=== PATIENT | male | born 1950 | race Caucasian/White ===

== ENCOUNTER 2017-12-07 16:32 | Inpatient (IN) ==
[2017-12-07 17:49] LABS: Basophils % 0.4 % (0.0-0.8); Hematocrit 42.1 VOL% (42.0-52.0); Hemoglobin 14.5 GM/DL (14.0-18.0); Immature Granulocytes % 0.4 %; Immature Granulocytes Absolute 0.01 #; Lymphocytes # 0.3 10*3/uL (1.4-4.0); Lymphocytes % 9.8 % (21.2-54.2); Mean Corpuscular HGB Conc 34.4 GM/DL (32-36); Mean Corpuscular Hemoglobin 34 PG (27-34); Mean Corpuscular Volume 98.4 FL (87-102); Mean Platelet Volume 10.5 FL (9.6-12.0); Monocytes # 0.4 10*3/uL (0.11-0.8); Monocytes % 14.8 % (1.7-12.7); Neutrophils % 74.6 % (38.7-73.9); Platelet Count 64 T/CUMM (130-400); Red Blood Count 4.28 MC/CUMM (3.8-5.5); Red Cell Distribution Width 14.6 % (9.3-17.3); White Blood Count 2.6 T/CUMM (4-12)
[2017-12-07 18:10] LABS: Albumin 2.8 G/DL (3.4-5.0); Bilirubin,Total 0.8 MG/DL (0.2-1.0); Calcium 8.3 MG/DL (8.5-10.1); Osmolality,Calculated 280.5 MOS/KG (273-304); Potassium 3.4 MMOL/L (3.5-5.1); Total Protein 7.8 G/DL (6.4-8.3)
[2017-12-07 20:03] LABS: Platelet Estimate Decreased
[2017-12-07 23:40] LABS: Lactic Acid 1.1 MMOL/L (0.4-2.0)
[2017-12-08 03:47] LABS: Basophils % 0.4 % (0.0-0.8); Eosinophils % 0.4 % (0.00-10.9); Hematocrit 40.6 VOL% (42.0-52.0); Hemoglobin 13.9 GM/DL (14.0-18.0); Immature Granulocytes % 0.4 %; Immature Granulocytes Absolute 0.01 #; Lymphocytes # 0.3 10*3/uL (1.4-4.0); Lymphocytes % 13.1 % (21.2-54.2); Mean Corpuscular HGB Conc 34.2 GM/DL (32-36); Mean Corpuscular Hemoglobin 34 PG (27-34); Mean Corpuscular Volume 97.8 FL (87-102); Mean Platelet Volume 10.7 FL (9.6-12.0); Monocytes # 0.4 10*3/uL (0.11-0.8); Monocytes % 17.1 % (1.7-12.7); NRBC # 0.02 10*3/uL; Neutrophils # 1.7 10*3/uL (1.4-7.4); Neutrophils % 68.6 % (38.7-73.9); Platelet Count 62 T/CUMM (130-400); Red Blood Count 4.15 MC/CUMM (3.8-5.5); Red Cell Distribution Width 14.8 % (9.3-17.3); White Blood Count 2.5 T/CUMM (4-12)
[2017-12-08 03:52] LABS: Calcium 8.7 MG/DL (8.5-10.1); Osmolality,Calculated 287.8 MOS/KG (273-304); Potassium 3.3 MMOL/L (3.5-5.1)
[2017-12-08 03:53] LABS: Albumin 2.5 G/DL (3.4-5.0); Calcium 8.5 MG/DL (8.5-10.1); Total Protein 7.1 G/DL (6.4-8.3)
[2017-12-08 03:54] LABS: Osmolality,Calculated 284.1 MOS/KG (273-304); Potassium 3.3 MMOL/L (3.5-5.1)
[2017-12-08 04:40] LABS: Apearance,Urine CLEAR (Clear); Bilirubin,Urine Negative (Negative); Blood, Urine Negative (Negative); Glucose,Urine (UA) Negative (Negative); Hyaline Casts,Urine 1 /LPF (0-3); Ketones,Urine 20 mg/dL (Negative); Mucus,Urine Occasional /LPF (Occasional); Nitrite,Urine Negative (Negative); Protein,Urine 30 MG/DL; RBC,Urine 2 /HPF (0-4); Squamous Epithelial Cell,Urine Occasional /HPF (0-10); Urine Color Yellow (Yellow); Urine Specific Gravity 1.018 (1.001-1.035); Urine Urobilinogen < 2.0 EU/DL (0.2-1.0); WBC,Urine 2 /HPF (0-6)
[2017-12-08 04:42] LABS: Band Neutrophils 4 % (0-10); Lymphocytes 15 % (20-55); Macrocytosis 2+; Platelet Estimate Decreased; Segmented Neutrophils 71 % (50-85); Total Cells Counted 100
[2017-12-10 10:32] LABS: Basophils % 0.8 % (0.0-0.8); Eosinophils # 0.3 10*3/uL (0.0-0.87); Eosinophils % 13.1 % (0.00-10.9); Hematocrit 40.6 VOL% (42.0-52.0); Hemoglobin 13.8 GM/DL (14.0-18.0); Immature Granulocytes % 0.4 %; Immature Granulocytes Absolute 0.01 #; Lymphocytes # 0.7 10*3/uL (1.4-4.0); Lymphocytes % 26.2 % (21.2-54.2); Mean Corpuscular Hemoglobin 33 PG (27-34); Mean Corpuscular Volume 98.1 FL (87-102); Mean Platelet Volume 10.8 FL (9.6-12.0); Monocytes # 0.3 10*3/uL (0.11-0.8); Monocytes % 12.7 % (1.7-12.7); Neutrophils # 1.2 10*3/uL (1.4-7.4); Neutrophils % 46.8 % (38.7-73.9); Red Blood Count 4.14 MC/CUMM (3.8-5.5); Red Cell Distribution Width 14.6 % (9.3-17.3); White Blood Count 2.5 T/CUMM (4-12)
[2017-12-10 10:37] LABS: Platelet Count 72 T/CUMM (130-400)
[2017-12-10 10:54] LABS: Calcium 8.1 MG/DL (8.5-10.1); Osmolality,Calculated 282.3 MOS/KG (273-304); Potassium 4.2 MMOL/L (3.5-5.1)
[2017-12-10 10:56] LABS: Eosinophils 16 % (0-10); Lymphocytes 32 % (20-55); Segmented Neutrophils 38 % (50-85)
[2017-12-10 10:57] LABS: Atypical Lymphocytes 1+
[2017-12-10 10:59] LABS: Platelet Estimate Decreased
[2017-12-10 11:00] LABS: Anisocytosis 1+; Macrocytosis 1+
[2017-12-10 11:01] LABS: Total Cells Counted 100
[2017-12-12 06:13] LABS: Osmolality,Calculated 279.3 MOS/KG (273-304); Potassium 3.4 MMOL/L (3.5-5.1)
[2017-12-12 13:47] VITALS: BP 140/72
== END 2017-12-12 12:20 | disposition home or self-care (01) | DRG 372 ==
LOC: N.ED 16:32 → SUATTDRO 20:10 → N.EDINP 20:10 → N.2E 22:11
PROVIDERS: ATTEND Internal Medicine